=== PATIENT | female | born 1970 | race Caucasian/White ===

== ENCOUNTER 2021-10-20 17:35 | Inpatient (IN) | payer BC, MEDICAID ==
[~2021-10-20] VITALS: Ht 154.9 cm; Wt 64.9 kg
[2021-10-20 17:40] VITALS: BP_SYST 150
[2021-10-20 18:37] LABS: BASOPHILS # (AUTO) 0.1 K/uL (0.0-0.2); BASOPHILS % (AUTO) 1.7 % (0.0-2.0); EOSINOPHILS # (AUTO) 0.1 K/uL (0.0-0.4); EOSINOPHILS % (AUTO) 0.9 % (0.0-4.0); HEMATOCRIT 38.8 % (36-48); HEMOGLOBIN 13.3 g/dL (12.0-16.0); LYMPHOCYTES # (AUTO) 1.2 K/uL (1.0-5.5); LYMPHOCYTES % (AUTO) 18.5 % (20.5-51.5); MEAN CORPUSCULAR HEMOGLOBIN 33 pg (27-31); MEAN CORPUSCULAR HGB CONC 34 % (32-36); MEAN CORPUSCULAR VOLUME 97 fL (79.0-98.0); MONOCYTES # (AUTO) 0.5 K/uL (0.0-1.0); MONOCYTES % (AUTO) 8.7 % (1.7-9.3); NEUTROPHILS # (AUTO) 4.4 K/uL (1.8-7.7); NEUTROPHILS % (AUTO) 70.2 % (40.0-70.0); PLATELET COUNT (AUTO) 226 K/uL (130-430); RED BLOOD CELL COUNT(AUTO) 3.98 MIL/uL (4.2-6.2); RED CELL DISTRIBUTION WIDTH 13.6 % (9.0-15.0); WHITE BLOOD COUNT (AUTO) 6.2 K/uL (4.8-10.8)
--- NOTE | 2021-10-20 18:48 | NUR ---
COVID SWAB DONE IN TRIAGE ROOM AND SENT TO LAB
[2021-10-20 19:02] LABS: ANION GAP 9 (5-15); CALCIUM 8.5 mg/dL (8.4-11.0); CHLORIDE 108 mmol/L (98-107); GLUCOSE 101 mg/dL (70-99); POTASSIUM 3.6 mmol/L (3.5-5.1); SODIUM SERUM 142 mmol/L (136-145); UREA NITROGEN, BLOOD 10 mg/dL (8-21)
[2021-10-20 19:04] LABS: GFR AFRICAN AMERICAN 85 mL/min (>90)
[2021-10-20 19:07] LABS: ALANINE AMINOTRANSFERASE 22 U/L (12-78); ALBUMIN 3.6 g/dL (3.4-4.8); TOTAL BILIRUBIN 0.4 mg/dL (0.0-1.0)
[2021-10-20 19:21] LABS: ASPARTATE AMINOTRANSFERASE 28 U/L (10-37)
--- NOTE | 2021-10-20 20:11 | NUR ---
Patient to ER bed 1 for evaluation. Side rails up.
--- NOTE | 2021-10-20 20:15 | NUR ---
PATIENT BROUGHT IN FROM HOME COMPLAINING OF RIGHT SIDED WEAKNESS AND NUMBNESS SINCE 10/17/21. PATIENT REPORTS RIGHT SIDE IS MORE WEAK THAN YESTERDAY AND NUMBNESS IS ACUTE. DENIES ANY PAIN AT THIS TIME. AMBULATES WITH STEADY GAIT.
--- NOTE | 2021-10-20 20:22 | NUR ---
ER Dr. OSWALD at bedside examining patient.
--- NOTE | 2021-10-20 20:25 | NUR ---
NOTIFIED ANA ADMITTING TO [facility]
[2021-10-20] MEDS ORDERED: ASPIRIN 81 MG TAB.CHEW PO ONE (20:30)
[2021-10-20] MEDS ORDERED: ATORVASTATIN 20 MG TABLET ONE (21:07)
[2021-10-20] MEDS: ATORVASTATIN 20 MG TABLET PO SCH (21:10)
--- NOTE | 2021-10-20 21:24 | NUR ---
PATIENT STATES NO MEDICATION AND SHE IS FULL CODE.
--- NOTE | 2021-10-20 21:37 | NUR ---
Admit bed requested Patient will be admitted to care of . Admitted to TELEMETRY unit. Diagnosis CVA Inpatient (Yes or No) YES Observation (Yes or No) Orientation concerns or request close to nursing station (Yes or No) NO Covid Status NEG On vent or bipap NO Isolation requirements NO Needs a sitter NO From Home (Yes or if No enter name of facility) YES Requires Dialysis (Yes or No) NO Med Rec Completed (Yes of No) YES
--- NOTE | 2021-10-20 22:01 | NUR ---
Transfer to TELEMETRY via ACLS protocol. Licensed nurse present. IV present no signs or symptoms of infiltration.
--- NOTE | 2021-10-20 22:10 | NUR ---
ADMISSION NOTE Received patient from ER via [facility], received report from PERI/ RN. Patient admitted with diagnosis of CVA. Patient oriented to hospital routine, call light, toileting and safety-patient verbalized understanding.
[2021-10-20 22:17] VITALS: BP_SYST 139
[2021-10-21 02:00] VITALS: BP_SYST 121
--- NOTE | 2021-10-21 02:00 | NUR ---
PATIENT RESTING: Patient resting quietly. No acute distress noted. Vital signs within normal range.
--- NOTE | 2021-10-21 05:46 | NUR ---
CONSULTATION PAGED/CALLED Reason for Consultation: CVA Person Who was Notified: DONNA Consulting Physician: [employer] Implementation Specialist Specialty: Ordering Physician: CORAZON
--- NOTE | 2021-10-21 06:51 | NUR ---
CLOSING NOTES: Patient is in bed resting no s/s of distress is noted at this time. Patient is AA&Ox4 able to verbalize needs. Patient is noted to have some right sided weakness, but is able to ambulate with minimal assist. No speech or swallowing issues were noted. All current shift needs have been met at this time, safety protocols are in place and patient has call light within reach. Will differ further care to AM shift for continuity of care.
[2021-10-21 08:34] VITALS: BP_SYST 122
[2021-10-21] MEDS: ATORVASTATIN 20 MG TABLET PO SCH (09:07)
[2021-10-21 09:51] LABS: CHOLESTEROL 115 mg/dL (<200); HDL CHOLESTEROL 56 mg/dL (>55); LDL CHOLESTEROL 54 mg/dL (<100); TRIGLYCERIDES 92 mg/dL (30-150)
[2021-10-21 12:00] VITALS: BP_SYST 122
--- NOTE | 2021-10-21 15:00 | NUR ---
echocardiogram and carotid ultrasound done at the bedside.
[2021-10-21 15:46] VITALS: BP_SYST 127
--- NOTE | 2021-10-21 17:49 | NUR ---
P.T. NOTES P.T. EVAL COMPLETED; REFER TO EVAL FOR DETAILS.
--- NOTE | 2021-10-21 19:01 | NUR ---
MD MESSER ( neurologist) seen and examine patient and discuss about the MRI of the brain order. vital sign stable,afebrile. no significant changes of condition noted.
--- NOTE | 2021-10-21 19:18 | NUR ---
OPENING NOTES: Patient received from AM shift. Patient is AA&Ox4 able to make needs known. Denies any pain or distress at this time. Chest rise ise even and unlabored on RA with CTA. Normal heart sounds present S1 & S2 on tele monitoring. Active bowel sounds x4 on auscultation, no distention noted, denies pain with palpation. PIV noted to LAC saline locked. Patient is ambulatory with minimal assist, skin is intact. Safety protocols are in place, and patient has call light within reach. Will resume care.
[2021-10-21 20:00] VITALS: BP_SYST 116
[2021-10-21] MEDS ORDERED: ASPIRIN 81 MG TAB.CHEW PO ONE (20:00)
--- NOTE | 2021-10-22 00:41 | NUR ---
PATIENT RESTING: Patient resting quietly. No acute distress noted. Vital signs within normal range.
[2021-10-22 01:00] VITALS: BP_SYST 111
[2021-10-22 07:57] LABS: CALCIUM 8.3 mg/dL (8.4-11.0); CREATININE 0.77 mg/dL (0.55-1.30); POTASSIUM 3.7 mmol/L (3.5-5.1)
[2021-10-22 08:00] VITALS: BP_SYST 124
[2021-10-22 08:01] LABS: EOSINOPHILS # (AUTO) 0.1 K/uL (0.0-0.4); EOSINOPHILS % (AUTO) 2.2 % (0.0-4.0); HEMATOCRIT 37.9 % (36-48); LYMPHOCYTES # (AUTO) 1.7 K/uL (1.0-5.5); LYMPHOCYTES % (AUTO) 30.2 % (20.5-51.5); MEAN CORPUSCULAR HEMOGLOBIN 33 pg (27-31); MEAN CORPUSCULAR HGB CONC 34 % (32-36); MEAN CORPUSCULAR VOLUME 97 fL (79.0-98.0); MONOCYTES # (AUTO) 0.5 K/uL (0.0-1.0); MONOCYTES % (AUTO) 8.4 % (1.7-9.3); PLATELET COUNT (AUTO) 216 K/uL (130-430); RED CELL DISTRIBUTION WIDTH 13.7 % (9.0-15.0); WHITE BLOOD COUNT (AUTO) 5.5 K/uL (4.8-10.8)
[2021-10-22 08:14] LABS: BASOPHILS % (AUTO) 0.6 % (0.0-2.0); NEUTROPHILS # (AUTO) 3.2 K/uL (1.8-7.7); NEUTROPHILS % (AUTO) 58.6 % (40.0-70.0)
[2021-10-22] MEDS ORDERED: ASPIRIN 81 MG TAB.CHEW PO SCH (09:00)
[2021-10-22] MEDS ORDERED: LIP20 PO (10:01)
[2021-10-22] MEDS ORDERED: ASA81 PO (10:01)
[2021-10-22] MEDS: ATORVASTATIN 20 MG TABLET PO SCH (10:29)
[2021-10-22 12:00] VITALS: BP_SYST 119
--- NOTE | 2021-10-22 14:15 | NUR ---
Pt went down to radiology this am to have MRI done. She has returned to her room. She is ambulatory. Gait is steady. NO s/s acute distress noted. Respirations even et unlabored; speech is clear. Will continue to monitor.
[2021-10-22 15:00] VITALS: BP_SYST 119
== END 2021-10-22 15:30 | disposition home or self-care (01) | DRG 47 ==
LOC: SED 17:35 → SMU 21:35 → STU 22:00
PROVIDERS: ADMIT Preventive Medicine Preventive Medicine/Occupational Environmental Medicine; ATTEND Preventive Medicine Preventive Medicine/Occupational Environmental Medicine
DX: G45.9 Transient cerebral ischemic attack, unspecified (principal); I69.351 Hemiplegia and hemiparesis following cerebral infarction affecting right dominant side; R73.9 Hyperglycemia, unspecified; I10 Essential (primary) hypertension; I48.0 Paroxysmal atrial fibrillation; Z20.822 Contact with and (suspected) exposure to COVID-19
CPT/HCPCS: 36415; 70450-TC; 70551; 76376; 80048; 80053; 80061; 83036; 84484; 85025; 93306; 93880; 97163-GP; 99291; 99292; G0378

== ENCOUNTER 2022-05-30 00:50 | Emergency (ER) | payer MEDICAID ==
[~2022-05-30] VITALS: Ht 154.9 cm; Wt 62.6 kg
[~2022-05-30 00:50] MED LIST: ASA81 PO; LIP20 PO
[2022-05-30 01:08] VITALS: BP_SYST 152
[2022-05-30] MEDS ORDERED: DIPHTH,PERTUSS(ACELL),TET VAC 0.5 ML VIAL (Tdap) I.M. ONE (01:30)
[2022-05-30] MEDS ORDERED: AUG875 PO (01:37)
[2022-05-30 01:47] VITALS: BP_SYST 134
== END 2022-05-30 01:50 | disposition home or self-care (01) ==
LOC: SED 00:50
DX: S81.851A Open bite, right lower leg, initial encounter (principal); E78.5 Hyperlipidemia, unspecified; Z79.899 Other long term (current) drug therapy; W54.0XXA Bitten by dog, initial encounter; Y93.89 Activity, other specified; Y92.89 Other specified places as the place of occurrence of the external cause; Y99.8 Other external cause status
CPT/HCPCS: 90715; 99283

== ENCOUNTER 2022-09-28 00:02 | Emergency (ER) | payer MEDICAID ==
[~2022-09-28] VITALS: Ht 152.4 cm; Wt 61.7 kg
[~2022-09-28 00:02] MED LIST changes: +AUG875 PO
[2022-09-28 00:21] VITALS: BP_SYST 147
--- NOTE | 2022-09-28 00:27 | NUR ---
Patient triaged and placed in waiting room. VS checked and patient appears in no acute distress at this time. Accompanied by family , awaiting available bed, and MD notified of need for MSE.
--- NOTE | 2022-09-28 01:22 | NUR ---
ER in triage examining patient.
[2022-09-28] MEDS ORDERED: MECLIZINE HCL 25 MG TABLET (ANITVERT) PO ONE (01:30)
[2022-09-28] MEDS ORDERED: IBUPROFEN 600 MG TABLET PO ONE (01:30)
[2022-09-28 02:26] LABS: BILIRUBIN,URINE NEGATIVE (NEGATIVE); BLOOD, URINE 3+ (NEGATIVE); CLARITY/URINE CLEAR (CLEAR); COLOR,URINE YELLOW (YELLOW); GLUCOSE,URINE NEGATIVE (NEGATIVE); KETONES,URINE NEGATIVE (NEGATIVE); LEUKOCYTE ESTERASE ,URINE NEGATIVE (NEGATIVE); NITRITE, URINE NEGATIVE (NEGATIVE); PROTEIN URINE NEGATIVE (NEGATIVE); UROBILINOGEN,URINE 0.2 (0.2-1.0)
[2022-09-28 02:34] LABS: BASOPHILS # (AUTO) 0.1 K/uL (0.0-0.2); BASOPHILS % (AUTO) 1.2 % (0.0-2.0); EOSINOPHILS # (AUTO) 0.1 K/uL (0.0-0.4); EOSINOPHILS % (AUTO) 1.5 % (0.0-4.0); HEMATOCRIT 38.3 % (36-48); HEMOGLOBIN 12.7 g/dL (12.0-16.0); LYMPHOCYTES # (AUTO) 1.4 K/uL (1.0-5.5); LYMPHOCYTES % (AUTO) 24.3 % (20.5-51.5); MEAN CORPUSCULAR HEMOGLOBIN 32 pg (27-31); MEAN CORPUSCULAR HGB CONC 33 % (32-36); MEAN CORPUSCULAR VOLUME 96 fL (79.0-98.0); MONOCYTES # (AUTO) 0.6 K/uL (0.0-1.0); MONOCYTES % (AUTO) 10.4 % (1.7-9.3); NEUTROPHILS # (AUTO) 3.7 K/uL (1.8-7.7); NEUTROPHILS % (AUTO) 62.6 % (40.0-70.0); PLATELET COUNT (AUTO) 232 K/uL (130-430); RED CELL DISTRIBUTION WIDTH 15.4 % (9.0-15.0); WHITE BLOOD COUNT (AUTO) 5.9 K/uL (4.8-10.8)
[2022-09-28 02:47] LABS: CALCIUM 8.2 mg/dL (8.4-11.0); CREATININE 0.8 mg/dL (0.55-1.30)
[2022-09-28 03:02] LABS: ALBUMIN 3.7 g/dL (3.4-4.8); PHOSPHORUS 3.2 mg/dL (2.7-4.5); THYROID STIMULATING HORMONE 5.28 uIu/mL (0.34-4.82); TOTAL BILIRUBIN 0.7 mg/dL (0.0-1.0)
[2022-09-28 03:40] LABS: BACTERIA,URINE RARE /HPF (None Seen); WBC,URINE 0-3 /HPF (0-3)
--- NOTE | 2022-09-28 03:44 | NUR ---
ER discussing lab results and diagnostics with patient and family
[2022-09-28] MEDS ORDERED: IBUP-1969 PO (03:46)
[2022-09-28] MEDS ORDERED: MECL-109 PO (03:46)
[2022-09-28 03:51] VITALS: BP_SYST 138
--- NOTE | 2022-09-28 03:51 | NUR ---
Patient given written and verbal discharge instructions and verbalizes understanding. ER MD discussed with patient the results and treatment provided. Patient in stable condition. Rx of Meclizine and Ibuprofen sent to Pharmacy of choice by ER MD. Patient educated on pain management and to follow up with PMD. Pain Scale 0/10. Opportunity for questions provided and answered.
== END 2022-09-28 03:51 | disposition home or self-care (01) ==
LOC: SED 00:02
DX: R51.9 Headache, unspecified (principal); R42 Dizziness and giddiness; E78.5 Hyperlipidemia, unspecified; Z79.899 Other long term (current) drug therapy
CPT/HCPCS: 99284; 71045; 80053; 81000; 83690; 83735; 84100; 84443; 85025; 36415; J8597

== ENCOUNTER 2023-05-27 16:53 | Emergency (ER) | payer MEDICAID ==
[~2023-05-27] VITALS: Ht 170.2 cm; Wt 58.5 kg
[~2023-05-27 16:53] MED LIST changes: +IBUP-1969 PO; +MECL-109 PO
[2023-05-27 17:00] VITALS: BP_SYST 119; PULSE 79; RESP 19; TEMP 98; O2SAT 99
[2023-05-27] MEDS ORDERED: BETA45CR3 TP (18:33)
[2023-05-27] MEDS ORDERED: PRED20TA PO (18:33)
[2023-05-27] MEDS ORDERED: DIPH25CA83 PO (18:33)
[2023-05-27 19:02] VITALS: BP_SYST 119; PULSE 79; RESP 19; TEMP 98; O2SAT 99
== END 2023-05-27 18:54 | disposition home or self-care (01) ==
LOC: SED 16:53
DX: L50.0 Allergic urticaria (principal); L29.9 Pruritus, unspecified; E78.5 Hyperlipidemia, unspecified; Z79.899 Other long term (current) drug therapy
CPT/HCPCS: 99283

== ENCOUNTER 2023-07-31 17:16 | Emergency (ER) | payer MEDICAID ==
[~2023-07-31] VITALS: Ht 152.4 cm; Wt 67.1 kg
[~2023-07-31 17:16] MED LIST changes: +BETA45CR3 TP; +DIPH25CA83 PO; +PRED20TA PO
[2023-07-31 17:31] VITALS: BP_SYST 142; PULSE 78; RESP 18; TEMP 98.3; O2SAT 96
[2023-07-31 17:59] VITALS: BP_SYST 142; PULSE 78; RESP 18; TEMP 98.3; O2SAT 96
[2023-07-31] MEDS ORDERED: CIPR7.5D OT (18:42)
== END 2023-07-31 18:54 | disposition home or self-care (01) ==
LOC: SED 17:16
DX: H60.91 Unspecified otitis externa, right ear (principal); E78.5 Hyperlipidemia, unspecified; Z79.899 Other long term (current) drug therapy
CPT/HCPCS: 99283

== ENCOUNTER 2023-10-16 18:17 | Emergency (ER) | payer MEDICAID ==
[~2023-10-16] VITALS: Ht 152.4 cm; Wt 67.1 kg
[~2023-10-16 18:17] MED LIST changes: +CIPR7.5D OT
[2023-10-16 19:13] VITALS: BP_SYST 140; PULSE 89; RESP 18; TEMP 97.8; O2SAT 99
[2023-10-16] MEDS ORDERED: POLY17PO4 PO (20:51)
[2023-10-16 20:56] VITALS: BP_SYST 130; PULSE 89; RESP 18; TEMP 97.8; O2SAT 99
[2023-10-16] MEDS: SODIUM PHOSPHATE,MONO-DIBASIC 133 ML ENEMA RC ONE (21:06)
== END 2023-10-16 20:56 | disposition home or self-care (01) ==
LOC: SED 18:17
DX: K59.00 Constipation, unspecified (principal); E78.5 Hyperlipidemia, unspecified; Z79.899 Other long term (current) drug therapy; Z79.2 Long term (current) use of antibiotics
CPT/HCPCS: 74018; 99284